=== PATIENT | female | born 1975 | race Caucasian/White ===

== ENCOUNTER 2025-03-28 22:56 | Emergency (ER) | payer SELFPAY ==
[~2025-03-28] VITALS: Ht 160 cm; Wt 69.0 kg
[2025-03-28 23:13] VITALS: O2SAT 98
[2025-03-29] MEDS: SODIUM CHLORIDE 0.9% 1,000 ML IV ONE (00:42)
[2025-03-29 00:45] LABS: PLATELET 200 x1000/uL (130-400); RED BLOOD CELL COUNT 4.38 mill/uL (4.2-5.4); RED CELL DISTRIBUTION WIDTH 14.3 % (11.6-14.6)
[2025-03-29 00:48] LABS: CREATININE 0.6 mg/dL (0.6-1.0); UREA NITROGEN BLOOD 6 mg/dL (9-23)
[2025-03-29 00:50] LABS: ASPARTATE AMINOTRANSFERASE 180 IU/L (<34); BILIRUBIN DIRECT 0.3 mg/dL (<=3.0); BILIRUBIN TOTAL 0.7 mg/dL (0.1-1.0); PHOSPHORUS 3.7 mg/dL (2.5-4.9)
[2025-03-29 00:51] LABS: PROTEIN TOTAL 7.4 g/dL (6.0-8.3)
[2025-03-29] MEDS: POTASSIUM CHLORIDE 20MEQ TABLET SR PO NR (02:14)
[2025-03-29 02:15] VITALS: BP 138/76; PULSE 82; RESP 14; TEMP 36.7; O2SAT 97
== END 2025-03-29 02:40 | disposition home or self-care (01) ==
LOC: ER 03-29 00:16
DX: F10.129 Alcohol abuse with intoxication, unspecified (principal); Y90.9 Presence of alcohol in blood, level not specified
CPT/HCPCS: 99283; 96360; 96361; 80076; 80048; 83690; 83735; 84100; 85027; 36415; J7030